=== PATIENT | female | born 1960 | race Caucasian/White ===

== ENCOUNTER 2018-06-16 13:52 | Day surgery (SDC) | payer OTHER ==
[~2018-06-16] VITALS: Ht 157.5 cm; Wt 96.2 kg
[2018-06-16] MEDS ORDERED: AMLO25TA PO (14:04)
[2018-06-16] MEDS ORDERED: PIPERACILLIN/TAZOBACTAM SOD 3.375 GM in D5W MINI-BAG PLUS 50 ML IV ONE (14:30)
[2018-06-16] MEDS ORDERED: NS 1,000 ML IV SCH (14:30)
[2018-06-16] MEDS ORDERED: HYDR25TAB PO (15:16)
[2018-06-16] MEDS ORDERED: AMLO5TAB6 PO (15:16)
[2018-06-16] MEDS ORDERED: IBUP1TAB7 PO (15:16)
[2018-06-16] MEDS ORDERED: VITA1CAP25 PO (15:16)
[2018-06-16] MEDS ORDERED: ATOR40TA75 PO (15:16)
[2018-06-16] MEDS ORDERED: GLYCOPYRROLATE INJ 0.2 MG/ML 2 ML VIAL As Ordered ONE (15:35)
[2018-06-16] MEDS ORDERED: ROCURONIUM BROMIDE 50 MG/5 ML VIAL As Ordered ONE (15:35)
[2018-06-16] MEDS ORDERED: ONDANSETRON 4MG/2ML VIAL (J2405) As Ordered ONE ×2 (15:35→18:50)
[2018-06-16] MEDS ORDERED: PROPOFOL 200 MG/20 ML VIAL As Ordered ONE (15:35)
[2018-06-16] MEDS ORDERED: LIDOCAINE 2% INJ 100 MG/5 ML SDV (FOR ANES.) As Ordered ONE (15:35)
[2018-06-16] MEDS ORDERED: dexameTHASONE 4 MG/ML 1ML VIAL (J1100) As Ordered ONE (15:35)
[2018-06-16] MEDS ORDERED: NEOSTIGMINE 10 MG/10 ML VIAL (J2710) As Ordered ONE (15:35)
[2018-06-16] MEDS ORDERED: fentaNYL 100 MCG/2 ML INJECTION (J3010) As Ordered ONE ×2 (15:36→18:49)
[2018-06-16] MEDS ORDERED: MIDAZOLAM INJ 2 MG/2 ML VIAL (J2250) As Ordered ONE (15:36)
[2018-06-16] MEDS ORDERED: BUPIVACAINE/EPIN 0.25% 30 ML VIAL As Ordered ONE (16:05)
[2018-06-16] MEDS ORDERED: ePHEDrine SULFATE 25 MG/5 ML(5MG/ML) SYRINGE As Ordered ONE (18:24)
[2018-06-16] MEDS ORDERED: KETOROLAC 30 MG/ML VIAL (J1885) As Ordered ONE (18:53)
[2018-06-16] MEDS ORDERED: ONDANSETRON 4MG/2ML VIAL (J2405) IV PRN (19:00)
[2018-06-16] MEDS ORDERED: NORCO, ANEXSIA 5/325MG TABLET (HYDROcodone/ACETAMINOPHEN) PO PRN ×2 (19:00)
[2018-06-16] MEDS ORDERED: METOCLOPRAMIDE INJ 10MG/2ML VIAL (J2765) IV PRN ×2 (19:00→19:30)
[2018-06-16] MEDS ORDERED: IPRATROPIUM 0.5MG/ALBUTEROL 2.5MG INH SOL UD 3ML (DUONEB)(J7620) NEB PRN (19:00)
[2018-06-16] MEDS ORDERED: PROMETHAZINE INJ 25 MG/ML VIAL (J2550) IV PRN (19:00)
[2018-06-16] MEDS: KETOROLAC 30 MG/ML VIAL (J1885) IV SCH (19:00)
[2018-06-16] MEDS ORDERED: MORPHINE 4 MG/ML 1ML VIAL/SYRINGE (J2270) IV PRN (19:00)
[2018-06-16] MEDS: ONDANSETRON 4MG/2ML VIAL (J2405) IV PRN ×2 (19:00→19:37)
[2018-06-16] MEDS ORDERED: PERCOCET 5MG/325MG TAB As Ordered ONE (19:15)
[2018-06-16] MEDS ORDERED: fentaNYL 100 MCG/2 ML INJECTION (J3010) IV PRN (19:30)
[2018-06-16] MEDS ORDERED: PERCOCET 5MG/325MG TAB PO PRN (19:30)
[2018-06-16] MEDS ORDERED: MEPERIDINE INJ 25 MG/ML VIAL (J2175) IV PRN (19:30)
[2018-06-16] MEDS ORDERED: LR 1,000 ML IV SCH (19:30)
[2018-06-16] MEDS ORDERED: IPRATROPIUM 0.5MG/ALBUTEROL 2.5MG INH SOL UD 3ML (DUONEB)(J7620) NEB SCH (20:00)
[2018-06-16 20:10] VITALS: BP 163/75
[2018-06-16 20:40] VITALS: BP 140/72
[2018-06-16] MEDS: D5W/LR 1,000 ML IV SCH (20:55)
[2018-06-16] MEDS: PIPERACILLIN/TAZOBACTAM SOD 3.375 GM in D5W MINI-BAG PLUS 50 ML IV SCH (20:55)
[2018-06-16 21:10] VITALS: BP 138/67
[2018-06-16 22:10] VITALS: BP 134/69
[2018-06-16 23:10] VITALS: BP 140/76
[2018-06-17 00:10] VITALS: BP 130/64
[2018-06-17] MEDS: KETOROLAC 30 MG/ML VIAL (J1885) IV SCH ×2 (00:59→06:45)
[2018-06-17 01:10] VITALS: BP 131/78
[2018-06-17] MEDS: PIPERACILLIN/TAZOBACTAM SOD 3.375 GM in D5W MINI-BAG PLUS 50 ML IV SCH ×2 (03:49→09:17)
[2018-06-17 05:00] VITALS: BP 131/80
[2018-06-17] MEDS: D5W/LR 1,000 ML IV SCH (07:23)
[2018-06-17] MEDS ORDERED: PANTOPRAZOLE 40MG TAB (PROTONIX) PO SCH (09:00)
[2018-06-17] MEDS ORDERED: AMOX500T2 PO (09:40)
--- NOTE | 2018-06-21 20:50 | RO ---
DATE OF PROCEDURE: 06/16/2018 PREOPERATIVE DIAGNOSIS: Acute appendicitis. POSTOPERATIVE DIAGNOSIS: Acute appendicitis. PROCEDURE: Laparoscopic appendectomy. SURGEON: Clem Phan MD [employer] UTILITY OPERATOR: ANESTHESIA: General endotracheal anesthesia. ESTIMATED BLOOD LOSS: Minimal. FLUIDS: Crystalloid. BRIEF PROCEDURE SUMMARY: The patient was brought to the operating room, was given general anesthesia. After adequate anesthesia and preoperative antibiotics were given, the patient was prepped and draped in the usual sterile fashion. Next, a supraumbilical incision was made with a skin knife. Blunt dissection was carried down to fascia. Veress needle placed into the abdominal cavity and insufflated to 15 mm of pressure. A dilating 12 mm trocar was placed at the supraumbilical area and under direct visualization, a suprapubic 5 mm and left lower quadrant 5 mm trocars were placed. There was some turbid fluid within the pelvis, which was aspirated out and then the patient was placed in a steep Trendelenburg, left side down position. Appendix was seen, mobilized along its mesentery using the Harmonic scalpel all the way to the base of the appendix. At the base of the appendix, however, there was either stool within the appendiceal orifice or this could have been a polyp; it was hard to tell, but there was definitely some palpable abnormality in this area. Thus, an [place] 60 stapler was used to transect the base of the appendix/cecal, and this was sent with the specimen and brought out through the umbilicus in an EndoCatch bag. The right lower quadrant was copiously irrigated until clear and all trocars were removed under direct visualization. The periumbilical site was closed with #0 Vicryl in the fascial layer and all incisions were closed with #4-0 Vicryl. Steri-Strips and a dry sterile dressing was applied. The patient was awakened, extubated, brought to recovery room awake, alert and hemodynamically stable. Sponge and needle counts were correct times two.
== END 2018-06-17 10:40 | disposition home or self-care (01) ==
LOC: M ED 13:52 → M SDC 15:00 → M PED 20:18 → M SDC 06-17 10:40
PROVIDERS: ATTEND Surgery
DX: K35.890 Other acute appendicitis without perforation or gangrene (principal); E78.5 Hyperlipidemia, unspecified; I10 Essential (primary) hypertension; E66.9 Obesity, unspecified; Z79.899 Other long term (current) drug therapy
CPT/HCPCS: 44970; 88302; 96361; 96365; 96366; 96375; 96376; 99284; J1100; J1885; J2250; J2405; J2543; J2710; J3010